=== PATIENT | male | born 1940 | race African-American/Black ===

== ENCOUNTER 2020-08-19 18:39 | Observation (INO) | payer MEDICARE, MEDICAID, SELFPAY ==
[2020-08-19] VITALS (13 sets, daily range): BP systolic 114–146; BP diastolic 59–71; PULSE 64–82; RESP 9–17; TEMP 36.6; O2SAT 99–100
--- NOTE | ~2020-08-19 | CT_ITS ---
EXAMINATION: CT brain wo con DATE: 08/19/2020 19:47 INDICATION: Syncope. TECHNIQUE: Computed tomography (CT) of the head was performed without intravenous contrast. The mA wa s adjusted according to patient size. Iterative reconstruction technique was employed. The dose-lengt h product was 605.33 mGy-cm. COMPARISON: None FINDINGS: There is no intracranial hemorrhage, acute infarction, or abnormal intracranial mass lesion . The ventricles are normal in size. The paranasal sinuses are clear. The mastoid air cells are terell l. There are likely changes of ocular lens replacement surgeries. IMPRESSION: 1. Normal brain. Reviewed, dictated and finalized at location A. IMPRESSION: 1. Normal brain.
--- NOTE | ~2020-08-19 | XR_ITS ---
EXAMINATION: XR chest 1V portable DATE: 08/19/2020 19:02 INDICATION: Syncope. TECHNIQUE: A single frontal view of the chest was obtained. COMPARISON: None. FINDINGS: There is mild atelectasis in the lower lung zones. No pleural effusion or pneumothorax. The heart size is normal. IMPRESSION: 1. Mild atelectasis in the lower lung zones. Reviewed, dictated and finalized at location A.
--- NOTE | 2020-08-19 18:52 | ECG_ITS ---
Measurements Intervals Simpson Rate: 80 P: 55 VA: 143 QRS: 3 QRSD: 97 T: 24 QT: 356 QTc: 412 Interpretive Statements SINUS RHYTHM POSSIBLE LEFT ATRIAL ENLARGEMENT BASELINE ARTIFACT- I, II, III, AVR, AVL, AVF, V1-V6 BORDERLINE ECG Electronically Signed On 08-19-2020 19:32:16 CDT by Ousmane Gayle D.O.
[2020-08-19] MEDS: SODIUM CHLORIDE 0.9% IV 1,000 ML 999 ML IV CONT (19:00)
[2020-08-19 19:05] LABS: Basophils Percent Auto 0.6 % (0.2-1.2); Eosinophils Absolute Auto 0.1 K/mm3 (0-0.3); Eosinophils Percent Auto 1.5 % (0-4.4); Hematocrit 32.5 % (42.0-52.0); Hemoglobin 10.6 g/dL (14.0-18.0); Immature Granulocyte Absolute 0.01 K/mm3 (0.00-0.031); Immature Granulocyte Percent A 0.2 % (0-0.5); Lymphocytes Absolute Auto 1.47 K/mm3 (0.9-3.2); Lymphocytes Percent Auto 28.1 % (18.3-44.2); Mean Corpuscular HGB Conc 32.6 g/dl (32-36); Mean Platelet Volume 10.6 fl (7.4-10.4); Monocytes Absolute Auto 0.4 K/mm3 (0.1-0.6); Neutrophils Absolute Auto 3.2 K/mm3 (1.3-6.7); Neutrophils Percent Auto 61.6 % (45.5-73.1); Platelet Count Result 245 k/mm3 (150-375); Red Blood Count 3.65 M/mm3 (4.6-6.20); Red Cell Distribution Width 14.6 % (11.5-14.5); White Blood Count 5.2 K/mm3 (4.5-10.0)
--- NOTE | 2020-08-19 19:11 | ED.GENADULT ---
HPI - General Adult General Chief complaint: Chest Pain Stated complaint: stemi Time Seen by Provider: 08/19/20 18:52 Source: EMS and RN notes reviewed Mode of arrival: EMS Limitations: dementia History of Present Illness HPI narrative: Patient is 80 years old -[place] male was eating on the table at the [facility], after finishing eating, suddenly became unresponsive for less than 1 minute, did not fall of the chair,, then was sluggish to answer question. Patient is legally blind, walks with supervision, history of dementia, not cooperative, 1 and 1 observation, full code. Initially blood pressure was low, when the ambulance arrived ,blood pressure got better. Currently patient is back to his baseline, denying any symptoms. EMT called and suspected STEMI. EKG on arrival to the emergency room showed no STEMI. Related Data Home Medications Medication Instructions Recorded Confirmed acetaminophen 08/19/20 aspirin PO 08/19/20 atorvastatin [Lipitor] 08/19/20 bisacodyl mg RECTAL 08/19/20 famotidine [Pepcid] 20 mg PO BID 08/19/20 08/19/20 glipizide mg 08/19/20 insulin detemir U-100 [Levemir unit SUBCUT 08/19/20 FlexTouch U-100 Insuln] isosorbide mononitrate mg PO 08/19/20 latanoprost drp 08/19/20 metformin mg 08/19/20 metoprolol succinate PO 08/19/20 mirtazapine [Remeron] 15 mg PO DAILY 08/19/20 08/19/20 quetiapine [Seroquel] 25 mg PO HS 08/19/20 08/19/20 risperidone mg 08/19/20 Allergies Allergy/AdvReac Type Severity Reaction Status Date / Time No Known Allergies Allergy Verified 08/19/20 18:54 Review of Systems Review of Systems: ROS unobtainable: Yes unobtainable due to mental status PMFSH Social History Social History Gender identity (if verbalized by the patient): Male Exam Narrative: Exam Narrative: General appearance: Well-developed, well-nourished, does not look in pain or distress, Skin: Normal color Head: Normocephalic, nontraumatic Eyes: Clear conjunctiva ENT: Oropharynx normal, ears normal, nose normal Neck: Supple, nontender Chest and respiratory: Airway patent, no respiratory distress, no accessory muscle use Heart: Regular rate/rhythm Abdomen: Soft, nontender, no organomegaly, quiet bowel sounds Vascular: Normal peripheral pulses, normal capillary refill. Musculoskeletal: Normal range of motion, nontender back Neurologic: Alert and oriented to his name only Course Course Emergency Course: Stable, improved Vital Signs Vital signs: Vital Signs Temperature 36.6 C 08/19/20 18:38 Pulse Rate 82 08/19/20 18:38 Respiratory Rate 12 08/19/20 18:38 Blood Pressure 133/71 08/19/20 18:38 Pulse Oximetry 100 08/19/20 18:38 Temperature 36.6 C 08/19/20 18:38 Pulse Rate 80 08/19/20 19:16 Respiratory Rate 17 08/19/20 19:16 Blood Pressure 146/66 H 08/19/20 19:16 Pulse Oximetry 100 08/19/20 19:16 Medical Decision Making MDM Narrative Medical decision making narrative: Patient presents with syncope, hypotension after large meals. Currently is back to normal. Postprandial hypotension is a possibility. Labs, EKG, chest x-ray, CT head, IV fluid ordered. Further plan to follow Differential Diagnosis Differential Diagnosis: Postprandial hypotension, vasovagal, cardiac arrhythmia, Vital Signs Vital Signs: Vital Signs Temperature 36.6 C 08/19/20 18:38 Pulse Rate 82 08/19/20 18:38 Respiratory Rate 12 08/19/20 18:38 Blood Pressure 133/71 08/19/20 18:38 Pulse Oximetry 100 08/19/20 18:38 Temperature 36.6 C 08/19/20 18:38 Pulse Rate 80 08/19/20 19:16 Respiratory Rate 17 08/19/20 19:16 Blo
[2020-08-19 19:15] LABS: INR 0.9
[2020-08-19 19:16] LABS: Partial Thromboplastin Time 29.5 SECONDS (22.3-36.8)
[2020-08-19 19:20] LABS: Alanine Aminotransferase 37 U/L (4-50); Albumin Level 4.2 g/dL (3.5-5.1); Alkaline Phosphatase 48 U/L (38-126); Anion Gap 9 mmol/L (8-16); Aspartate Amino Transferase 40 U/L (17-59); Bilirubin,Total 0.3 mg/dL (0.2-1.3); Blood Urea Nitrogen 19 mg/dL (9-20); Calcium 9.7 mg/dL (8.4-10.2); Carbon Dioxide 26 mmol/L (22-30); Chloride 105 mmol/L (98-107); Estimated CRCL calculation 30 ml/min; Estimated Glomerular Filt Rate 50; Glucose 132 mg/dL (75-110); Potassium 4.4 mmol/L (3.4-5.0); Sodium 140 mmol/L (137-145)
[2020-08-19 19:29] LABS: NT Pro B Type Natriuretic Pept 471 pg/mL (5-100)
[2020-08-19 19:34] LABS: Add Urine Microscopic? YES; Appearance Urine Cloudy (Clear); Bacteria Urine Trace /hpf; Bilirubin Urine 1+ (Negative); Blood Urine Negative (Negative); Color Urine Amber (Yellow); Glucose Urine UA Negative (Negative); Hyaline Casts Urine 50+ /lpf; Ketones Urine Trace mg/dL (Negative); Leukocyte Esterase Ur Negative LEU/UL (Negative); Mucus Urine Heavy /lpf; Nitrate Urine Negative (Negative); Protein Urine 2+ mg/dL (Negative); RBC Urine 0-2 /hpf (0-2); Specific Grav Ur 1.025 (1.001-1.035); WBC Urine 0-3 /hpf
[2020-08-19 20:08] LABS: Troponin I < 0.012 ng/mL (0.000-0.034)
--- NOTE | 2020-08-19 22:00 | PC.NURSE ---
Lebatolol not required, cancelled order.
[2020-08-19 22:45] LABS: Troponin I < 0.012 ng/mL (0.000-0.034)
--- NOTE | 2020-08-19 23:20 | PC.NURSE ---
Updated POA at this time.
--- NOTE | 2020-08-19 23:44 | ADMGEN ---
This patient, Shaka Sears, was admitted to Medical Room 343-01. Patient/family oriented to hospital policies and general routines including ID bracelet, bed and alarms, visiting hours, pain management, procedures, bathroom and other care routines, personal items, smoking policy, room service/diet, and visiting hours. Information on how to activate the Rapid Response Team has been discussed. Patient/Family are encouraged to report perceived risks to care and to ask questions if they do not understand what they are told or what they should do.
[2020-08-20] VITALS (15 sets, daily range): BP systolic 131–156; BP diastolic 61–79; PULSE 55–101; RESP 10–16; TEMP 36.1–37.3; O2SAT 97–100; BMI 23.3
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
[2020-08-20] MEDS: SODIUM CHLORIDE 0.9% IV 1,000 ML 75 ML IV CONT (00:54)
[2020-08-20 01:36] LABS: Troponin I < 0.012 ng/mL (0.000-0.034)
[2020-08-20 08:00] LABS: Glucose Point of Care 78 mg/dl (65-105)
[2020-08-20 09:41] LABS: Hemoglobin 9.4 g/dL (14.0-18.0); Mean Corpuscular HGB Conc 32.4 g/dl (32-36); Mean Corpuscular Hemoglobin 28.8 pg (26-34); Mean Platelet Volume 10.4 fl (7.4-10.4); Platelet Count Result 196 k/mm3 (150-375); Red Blood Count 3.26 M/mm3 (4.6-6.20); Red Cell Distribution Width 14.5 % (11.5-14.5); White Blood Count 4.3 K/mm3 (4.5-10.0)
[2020-08-20 09:53] LABS: Anion Gap 7 mmol/L (8-16); Blood Urea Nitrogen 18 mg/dL (9-20); Calcium 9.3 mg/dL (8.4-10.2); Carbon Dioxide 26 mmol/L (22-30); Chloride 107 mmol/L (98-107); Estimated CRCL calculation 40 ml/min; Estimated Glomerular Filt Rate > 60; Glucose 80 mg/dL (75-110); Potassium 4.2 mmol/L (3.4-5.0); Sodium 140 mmol/L (137-145)
[2020-08-20] MEDS: FAMOTIDINE 20 MG TABLET PO (12:29)
[2020-08-20] MEDS: ASPIRIN 81 MG ENTERIC TABLET PO (12:29)
[2020-08-20] MEDS: METOPROLOL SUCCINATE EXT REL 25 MG TABCR PO (12:29)
[2020-08-20] MEDS: risperiDONE 0.5 MG TABLET PO (12:29)
[2020-08-20] MEDS: ISOSORBIDE MONONITRATE 30 MG TAB.ER.24H PO (12:29)
[2020-08-20 12:38] LABS: Glucose Point of Care 86 mg/dl (65-105)
--- NOTE | 2020-08-20 17:23 | PM.DS ---
DS: Admitting Diagnosis Admitting Diagnosis Admitting Diagnosis: Syncope DS: Discharge Diagnosis Discharge Diagnosis (1) Unresponsive episode: Code(s): R41.89 - Other symptoms and signs involving cognitive functions and awareness Status: Acute Assessment and Plan: Had an episode in which he was eating dinner and suddenly became unresponsive for less than 1 minute after finishing his meal. His blood sugar was found to be 165 and he was hypotensive with BP 71/45. Episode felt to be syncope vs postprandial hypotension. His BP remained stable during hospitalization. Head CT was negative. Troponin negative. He was monitored on telemetry with occassional episodes of bradycardia down to 50 without pauses or arrhythmias. He returned to his baseline. Fall precautions should be implemented and BP will be monitored at halfway. (2) T2DM (type 2 diabetes mellitus): Code(s): E11.9 - Type 2 diabetes mellitus without complications Status: Acute Assessment and Plan: Glucose remained stable on sliding scale insulin. Continue home regimen and monitor glucose levels at halfway. (3) Blindness: Code(s): H54.7 - Unspecified visual loss Status: Acute Assessment and Plan: Requiring assistance with ADLs. (4) Hypertension: Code(s): I10 - Essential (primary) hypertension Status: Acute Assessment and Plan: Blood pressures were well controlled during hospitalization. Orthostatic blood pressures were negative. (5) ABRAHAN (acute kidney injury): Code(s): N17.9 - Acute kidney failure, unspecified Status: Acute Assessment and Plan: Baseline renal function is unknown. Creatinine was 1.6 at presentation and improved to 1.2. Suspect pre-renal etiology given improvement with IV fluids. DS: Summary Hospital Course Hospital Course: Date of admission: 08/19/20 Date of discharge: 08/20/20 Shaka Sears is an 80 year old male with a history of hypertension, diabetes mellitus, and dementia who presented to the emergency department via EMS from his halfway after having an episode in which he was unresponsive for <1 minute after eating his dinner. Upon presentation to the emergency department, his vital signs were stable, H&H slightly decreased with normal white count and platelet count, BMP within normal limits with the exception of creatinine which was elevated at 1.6, BNP 471, troponin negative, and UA without signs of infection, CXR showed mild atelectasis, head CT was negative, and EKG showed normal sinus rhythm. He was admitted to the hospitalist service for further evaluation and management. Please see above for further details. He returned to his baseline and was feeling well. Given his overall improvement, he was determined to no longer require inpatient care and was felt to be stable for discharge. He was discharged in hemodynamically stable condition on 08/20/20. Status at Discharge Overall status at discharge: patient is progressing back to baseline Time Spent with Patient Time attestation: Total time spent providing and/or coordinating discharge services: 45 minutes Time spent: Greater than 30 minutes Exam Narrative: Exam Narrative: Mr. Sears is a well-appearing 80-year-old male who is lying supine in bed. He appears comfortable and is in NARD. Neuro: Awake. He does not cooperate with my questioning and declines to answer orientation questions. Speech clear. No focal neuro deficits noted HEENMT: normocephalic, atraumatic, EOMI, sclerae anicteric, moist oral mucosa Neck: supple, no lymphadenopathy Respiratory: clear to auscultation bilaterally, nonlabored breathing Cardio: regular rate, regular rhythm with S1-S2. Telemetry reviewed. Abdomen: nondistended, normoactive bowel sounds, soft, nontender to palpation Extremities: no edema, erythema, or tenderness to palpation, DP pulses 2+ bilaterally Skin: no rashes or lesions, warm and dry
== END 2020-08-20 21:51 ==
LOC: ANHED 22:16 → ANH3MED 23:28
PROVIDERS: Internal Medicine Cardiovascular Disease; Physician Assistant; Admitting Provider Internal Medicine; Emergency Provider Emergency Medicine; PCP Family Medicine; Visit Provider Family Medicine
PROC: 4A023N7 Measurement of Cardiac Sampling and Pressure, Left Heart, Percutaneous Approach (ICD-10-PCS; CPT 93452; principal; 2020-08-19 18:40)
DX: R41.89 Other symptoms and signs involving cognitive functions and awareness (principal); E11.9 Type 2 diabetes mellitus without complications; I10 Essential (primary) hypertension; N17.9 Acute kidney failure, unspecified; H54.7 Unspecified visual loss; F03.90 Unspecified dementia, unspecified severity, without behavioral disturbance, psychotic disturbance, mood disturbance, and anxiety; Z79.82 Long term (current) use of aspirin; Z79.4 Long term (current) use of insulin; Z79.84 Long term (current) use of oral hypoglycemic drugs
CPT/HCPCS: 36415; 51701; 70450; 71045; 80048; 80053; 81001; 82948; 83880; 84484; 85025; 85027; 85610; 85730; 93005; 96360; 96361; 99285; A9270; G0378; J7030